=== PATIENT | male | born 1940 | race Caucasian/White ===

== ENCOUNTER 2024-01-02 06:16 | Emergency (ER) | payer MEDICARE, OTHER ==
[2024-01-02 06:24] VITALS: RESP 18; TEMP 97
[2024-01-02] MEDS ORDERED: Sodium Chloride 0.9% 1000 ML 1,000 ML ONE (06:34)
[2024-01-02] MEDS: Sodium Chloride 0.9% 1000 ML 1,000 ML IV SCH (06:39)
[2024-01-02 06:42] LABS: Absolute Neutrophil Ct (ANC) 2.25 x10^3/uL (1.78-5.38); BASOPHIL % 1.7 % (0.2-1.2); Basophil (Absolute #) 0.08 x10^3/uL (0.01-0.08); Eosinophil % 4.3 % (0.8-7.0); Hematocrit 36.4 % (40.1-51.0); Hemoglobin 11.9 g/dL (13.7-17.5); IMMATURE GRAN # 0.01 x10^3u/L (0.001-0.031); IMMATURE GRAN % 0.2 % (0.001-0.429); Lymphocyte (Absolute #) 1.75 x10^3/uL (1.32-3.57); Lymphocytes % 37.6 % (21.8-53.1); Mean Cell Volume 96.8 fL (79.0-92.2); Mean Corpuscular Hemoglobin 31.6 pg (25.7-32.2); Mean Corpuscular Hgb Concent. 32.7 g/dL (32.3-36.5); Monocyte (Absolute #) 0.37 x10^3/uL (0.30-0.82); Monocytes % 7.9 % (5.3-12.2); Neutrophil % 48.3 % (34.0-67.9); Platelet Count 123 x10^3/uL (163-337); Red Blood Count 3.76 x10^6/uL (4.63-6.08); Red Cell Distribution Width 15.1 % (11.6-14.4); White Blood Count 4.7 x10^3/uL (4.23-9.07)
--- NOTE | 2024-01-02 06:44 | ERPHSYRPT ---
- History of Present Illness Time Seen by Provider: 01/02/24 06:18 Historian: patient, family () Exam Limitations: no limitations Physician History: Pt states about 80 minutes ago he started with constant central chest tightness and a feeling like he cannot take a deep breath; denies nausea, vomiting, fever; admits to diarrhea for the past week. Aspirin Treatment Today: 81 mg x 4, provided by ED Allergies/Adverse Reactions: Penicillins Allergy (Verified 01/02/24 06:37) - Review of Systems Constitutional: No Fever Respiratory: Other (feels like he cannot take a deep breath) Cardiac: Other (chest tightness) Abdominal/Gastrointestinal: Diarrhea, No Abdominal Pain, No Nausea, No Vomiting Neurological: No Headache - Past Medical History Pertinent Past Medical History: No Other Medical History: pt does not go to the dr and has no medical diagnoses - Past Surgical History Past Surgical History: No - Nursing Vital Signs Nursing Vital Signs: Initial Vital Signs Temperature 97.0 F 01/02/24 06:17 Pulse Rate 105 H 01/02/24 06:17 Respiratory Rate 18 01/02/24 06:17 Blood Pressure 167/90 01/02/24 06:17 O2 Sat by Pulse Oximetry 98 01/02/24 06:17 Pain Scale Pain Intensity 4 - Physical Exam SpO2 Interpretation: normal SpO2: 98 O2 Delivery: Room Air - Course EKG Interpreted by Me: RATE (100), Sinus Rhythm, Left [place] Deviation, ST Elev (V1,V2,V3), Other (QTc = 447; ST depression in V5 & V6) - Progress Progress Note: 01/02/24 06:49 Pt has had runs of V-tach in ER. Spoke with Dr. Pond who stated hold lidocaine until electrolytes are known and normal. Will see patient in: other (Spoke with & discussed pt with Dr. Landeros([id number]) who accepted pt for transfer to [facility].) Counseled pt/family regarding: diagnosis - Departure Departure Disposition: Transfer ([facility]) Clinical Impression: Chest tightness, Ventricular tachycardia Condition: Stable Critical Care Time: Yes Critical Care Time(excluding separately billable procedures): Critical 30-74 mins
[2024-01-02 06:54] LABS: ALBUMIN 4.4 g/dL (3.5-5.0); BILIRUBIN,TOTAL 0.4 mg/dL (0.2-1.3); Calcium 9.3 mg/dL (8.4-10.2); Creatinine 1 1.17 mg/dL (0.66-1.25); EST GLOMERULAR FILTRATION RATE 61.9 ML/MIN; Potassium 4.2 mmol/L (3.5-5.1); Total Protein 7.5 g/dL (6.3-8.2)
[2024-01-02] MEDS ORDERED: Nitrostat 0.4 MG (ED) SL ONE (06:54)
[2024-01-02] MEDS ORDERED: BABY ASPIRIN 81 MG CHEW ONE (06:54)
[2024-01-02] MEDS: BABY ASPIRIN 81 MG CHEW PO ONE (06:55)
[2024-01-02] MEDS: Nitrostat 0.4 MG (ED) SL ONE (06:56)
[2024-01-02] MEDS: XYLOCAINE 100 MG/5 ML ABBOJECT IV ONE (06:58)
[2024-01-02] MEDS ORDERED: Cordarone 150 MG/3 ML Injection ONE (07:05)
[2024-01-02] MEDS ORDERED: D5w 100ML Mini Bag 100 ML 100 ML IV ONE (07:05)
[2024-01-02] MEDS: Cordarone 150 MG/3 ML Injection*** 150 MG in D5w 100ML Mini Bag 100 ML 100 ML IV ONE (07:08)
[2024-01-02 07:34] VITALS: BP 142/59; PULSE 80; O2SAT 96
--- NOTE | 2024-01-02 08:37 | XRAY ---
Indication: Pain. Comparison: None Portable chest hyperinflated and clear. Heart enlarged. Bony thorax intact with osteopenia and mild degenerative changes. Impression: Cardiomegaly. Negative for acute pneumonic process or CHF.
== END 2024-01-02 07:18 | disposition short-term general hospital (02) ==
LOC: ED 06:16
DX: I47.20 Ventricular tachycardia, unspecified (principal); R07.9 Chest pain, unspecified; R19.7 Diarrhea, unspecified
CPT/HCPCS: 36000; 36415; 71045; 80053; 82150; 83690; 83735; 84484; 85025; 93005; 93041; 96374; 99285; 99291; J0282; A9270-GY